=== PATIENT | male | born 1995 | race African-American/Black ===

== ENCOUNTER 2025-08-29 16:23 | Emergency (ER) | payer OTHER ==
[~2025-08-29] VITALS: Ht 172.7 cm; Wt 75.0 kg
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
[2025-08-29 18:08] VITALS: BP 120/87; PULSE 64; RESP 15; TEMP 99.2; O2SAT 100
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
[2025-08-29] MEDS ORDERED: IBUP-1456 PO (18:19)
[2025-08-29] MEDS ORDERED: BACL10TA PO (18:19)
--- NOTE | 2025-08-30 08:06 | ECG ---
[facility] Test Date: 2025-08-29 Test Time: 16:49:28 Pat Name: PRANEETH DOVE Department: ED Room: Gender: M Chief Communications Officer: IC : 1995 Requested By: GALLO LOBO* Order Number: [id number] Reading MD: Temo Martin Measurements Intervals [place] Rate: 57 P: 66 UT: 137 QRS: -20 QRSD: 103 T: 55 QT: 394 QTc: 384 Interpretive Statements Sinus rhythm Borderline left axis deviation Anterior infarct, possibly acute ST elevation, consider inferior injury Electronically Signed On 08-31-2025 15:44:50 PST by Temo Martin Please click the below link to view image of tracing.
== END 2025-08-29 18:27 | disposition home or self-care (01) ==
LOC: ER 16:23
DX: S29.011A Strain of muscle and tendon of front wall of thorax, initial encounter (principal); S63.501A Unspecified sprain of right wrist, initial encounter; V49.88XA Car occupant (driver) (passenger) injured in other specified transport accidents, initial encounter; Y93.I9 Activity, other involving external motion; Y92.410 Unspecified street and highway as the place of occurrence of the external cause; Y99.8 Other external cause status
CPT/HCPCS: 71046; 73110; 93005